=== PATIENT | female | born 1955 | race Caucasian/White ===

== ENCOUNTER 2016-09-27 01:08 | Inpatient (IN) | payer BC ==
[~2016-09-27] VITALS: Ht 175.3 cm; Wt 112.9 kg
[~2016-09-27 01:08] MED LIST: ESTROVEN 155 M155 MG PO; GLUCOSA-CHOND-1 EACH; MAGNESIUM500 MG; PRILOSEC20 MG PO; VITAMIN C1000 MG PO
--- NOTE | 2016-09-27 04:35 | NUR ---
60YR OLD WOMAN ADMITTED FROM ER VIA STRETCHER TO ROOM 121. PT IS VERY SLEEPY BUT ABLE TO SLIDE SELF WITH MIN ASSIST ONTO BED FROM STRETCHER. FALLS ASLEEP IF NOT PROMPTED TO STAY AWAKE. RESP EVEN AND UNLABORED. O2 2L/NC. DOES NOT APPEAR PAINFUL AT THIS TIME, NO C/O NAUSEA. IS GOING HOME AND WILL RETURN IN COUPLE HOURS. SL TAPED SECURLY IN L FA.CALL LIGHT IN EASY REACH.
--- NOTE | 2016-09-27 05:04 | NUR ---
SPOKE WITH BRYANT IN ER RE: ELEVATED BP. STATED DR SKAGGS AWARE AND HE SPOKE WITH DR ENGLISH. NO ORDER TO TREAT AT THIS TIME. PT HAS BEEN PLACED ON TELE#4 FOR 8 SECS OF VTACH DURING TRANSFER.
--- NOTE | 2016-09-27 05:40 | NUR ---
AMBULATED INTO BATHROOM TO VOID-600ML CLOUDY YELLOW URINE. PT C/O PRESSURE MID CHEST AND SOB. ASSISTED TO BED. O2 2L/NC PLACED, VS BEING TAKEN. WILL CALL DR ENGLISH.
--- NOTE | 2016-09-27 06:07 | NUR ---
SPOKE WITH DR SPRAGUE RE: ELEVATED BP AND PT C/O CHEST PRESSURE AFTER AMBULATING INTO BATHROOM. RECIEVED ORDER FOR EKG, CARDIAC ENZYMES, HYDRALAZINE 10MG IV NOW AND HAVE DR RUTH CONSULT. ORDERS NOTED.
--- NOTE | 2016-09-27 06:34 | NUR ---
SPOKE WITH DR RUTH RE: CONSULT REQUEST FROM DR ENGLISH. STATES HE WILL COME SEE PT NOW.
--- NOTE | 2016-09-27 06:42 | NUR ---
RECIEVED CALL FROM DR RUTH TO GIVE NITRO .4MG SL, MEDICATION WAS GIVEN. PT STATES CHEST PRESSURE IS UNCHANGED.
--- NOTE | 2016-09-27 06:56 | NUR ---
B/P [id number]-[id number], PT CONT. TO HAVE MID STERNAL CHEST PRESSURE.
--- NOTE | 2016-09-27 07:45 | NUR ---
REPORT RECIEVED FROM CYNDIE YAO USING 5 P'S. PT AWAKE IN BED. PALE. RATES PAIN IN CHEST 11/23. DR RUTH AT BEDSIDE. ORDERS FOR FLUID BOLUS AND MORPHINE.
--- NOTE | 2016-09-27 07:58 | NUR ---
FLUID BOLUS STARTED AND 4 MG MS GIVEN WITH 4 MG ZOFRAN FOR C/O NAUSEA. FAMILY AT BEDSIDE. XRAY IN FOR PORTABLE CHEST XRAY. RT IN FOR EKG. PT REPORTS NO IMPROVEMENT IN PAIN AFTER MS SO FAR. FLUID BOLUS INFUSING WITHOUT DIFFICULTY INTO LAC. MD UPDATED.
--- NOTE | 2016-09-27 09:25 | NUR ---
SECOND SALINE LOCK INSERTED IN L WRIST ON FIRST ATTEMPT. PT TOLERTED WELL. POTASSIUM RIDER INITIATED. DR ENGLISH IN TO SEE PT. PT RATES PAIN 5/10. ASSISTED UP TO BSC TO VOID 700ML CLOUDY CONCENTRATED URINE. PAIN INCREASES WITH ACTIVITY. ASSISTED BACK TO BED. PAIN DECREASES TO 5/10. CONT PULSE OX IN PLACE D/T MS AND PHENERGAN. FAMILY AT BEDSIDE. PT DENIES FURTHER NEEDS. SCD'S IN PLACE. IV FLUIDS AND RIDERS INFUSING WITHOUT DIFFICULTY. CALL LIGHT IN REACH.
--- NOTE | 2016-09-27 11:00 | NUR ---
PT SLEEPING. RESP EVEN, UNLABOURED. FAMILY AT BEDSIDE. CONT PULSE OX IN PLACE. SATS 97% ON 2 L 02. HR 84. CALL LIGHT IN REACH.
--- NOTE | 2016-09-27 11:22 | NUR ---
PATIENT RESTING IN BED WITH EYES CLOSED. FAMILY BY HER SIDE. CALL BUTTON IN REACH. HAD ORAL CARE. FAMILY WILL CALL WHEN SHE IS AWAKE IF NEEDED FOR MORE ADLS.
--- NOTE | 2016-09-27 12:00 | NUR ---
NOTIFIED OF INCREASED BP. LABETOLOL SCHEDULE CHANGED. AWAITING PHARMACY VERIFICATION.
--- NOTE | 2016-09-27 12:11 | NUR ---
PT UP TO BSC. COMPLAINS OF PAIN 9/10 AFTER MOVEMENT. GIVEN 6 MG MS. COMPLAINS OF NAUSEA. GIVEN 8 MG ZOFRAN IV. FAMILY REMAINS AT BEDSIDE. CALL LIGHT IN REACH. PT TO CALL FOR ANY NEEDS.
--- NOTE | 2016-09-27 12:30 | NUR ---
TROPONIN LEVEL DRAWN FROM IV SUCCESSFULLY FOR LAB. PT DROWSY. DENIES NEEDS. CALL LIGHT IN REACH. FAMILY IN ROOM.
--- NOTE | 2016-09-27 12:43 | NUR ---
PT IS ASLEEP, AND DAUGHTER IN RM. RAQUEL REMEMBERED ME FROM A PREVIOUS VISIT. DAUGHTER HAS JUST MOVED FROM [place]. PLAN IS TO DO LAP CASPER THIS AFTERNOON. HER HEART IS COMPLICATIING THINGS SOME, SO SURGERY IS PUT ON HOLD. HAD PRAYER WITH AND DAUGHTER, VERY APPRECIATIVE OF CARE THEY HAVE RECEIVED. WILL CONTINUE TO MONITOR
--- NOTE | 2016-09-27 14:03 | NUR ---
PATIENT RESTING IN BED WITH EYES CLOSED. FAMILY IN ROOM. NO OTHER NEEDS AT THIS TIME. CALL BUTTON IN REACH.
--- NOTE | 2016-09-27 14:10 | NUR ---
PT SLEEPING IN BED. RESP EVEN, UNLABOURED. CALL LIGHT IN REACH. IV ABX AND POTASSIUM INFUSING WITHOUT DIFFICULTY. FAMILY REMAINS AT BEDSIDE.
--- NOTE | 2016-09-27 16:46 | NUR ---
Pt up to BSC with nurse, voided 800cc dark yellow urine. Pt stated she was nauseous after returning to bed. Pain 4-5/10 in RUQ. Phenergan 12.[address] Barbosa in to explain plan for surgery tomorrow and she may be advanced to clear liquid diet until midnight. Small cup of water delivered, encouraged pt small sips only while she is feeling nauseous.
--- NOTE | 2016-09-27 17:44 | NUR ---
PATIENT RESTING IN BED WITH EYES CLOSED. PATIENT STATES THAT SHE HAS NO NEEDS AT THIS TIME. SHE SAYS SHE'S SLEEPY AND ASKED IF SHE RECIEVED ANTI NAUSIA MEDS YET. CALL BUTTON IN REACH. FAMILY IN ROOM.
--- NOTE | 2016-09-27 18:09 | NUR ---
PT COMPLAINED OF CHEST PRESSURE AT START OF SHIFT. NITRO INEFFECTIVE. GIVEN MS, ZOFRAN, PHENERGAN THROUGHOUT DAY FOR PAIN/NAUSEA MANAGEMENT. EFFECTIVE. CONT PULSE OX IN PLACE D/T LARGE VOLUME OF SEDATING MEDS. PAIN AND NAUSEA INCREASE WITH MOVEMENT TO BSC. HR INCREASES AT TIMES WITH MOVEMENT. TELE #9. NS RHYTHM THIS SHIFT. RECEIVED 1 L LR BOLUS. VOIDING LARGE AMOUNTS INFREQUENTLY. URINE DARK, CLOUDY. FAMILY AT BEDSIDE. PLAN FOR PT TO GO TO OR TOMORROW AROUND 1100 FOR CASPER. CONSENT SIGNED. PT RECIEVED POTASSIUM AND MAGNESIUM REPLACEMENT. AWARE OF ZOFRAN DOSES CLOSE TOGETHER. PT CALLS APPROPRIATELY.
--- NOTE | 2016-09-27 18:51 | NUR ---
Pt sleeping. Niece in room. Hung new bag of LR. Call storey within reach.
--- NOTE | 2016-09-27 19:05 | NUR ---
RECEIVED REPORT FROM DAY SHIFT RN. PATIENT IS RESTING IN BED. PATIENT DENIES ANY PAIN OR NAUSEA AT THIS TIME. PATIENT DENIES ANY NEEDS. PATIENT IS REQUESTING CHICKEN BROTH. CALL LIGHT IN REACH.
--- NOTE | 2016-09-27 19:21 | EKG ---
[facility] [address] [facility] [address] [place] [address] Signed Normal sinus rhythm Possible Left atrial enlargement Prolonged QT Abnormal ECG No previous ECGs available Confirmed by HERBIE RUTH MD ([id number]) on 09/27/2016 7:21:33 PM Electronically Signed By: HERBIE RUTH MD 09/27/161920 PATIENT NAME: CORTEZ CHINCHILLA Electrocardiogram DATE OF : 59 PHYSICIAN: HERBIE RUTH MD REPORT #: [id number] REPORT IS CONFIDENTIAL AND NOT TO BE RELEASED WITHOUT AUTHORIZATION
--- NOTE | 2016-09-27 19:21 | EKG ---
[facility] [address] [facility] [place] [address] Signed Normal sinus rhythm Possible Left atrial enlargement Prolonged QT Abnormal ECG When compared with ECG of 27-SEP-2016 04:21, (Unconfirmed) No significant change was found Confirmed by HERBIE RUTH MD ([id number]) on 09/27/2016 7:21:45 PM Electronically Signed By: HERBIE RUTH MD 09/27/161920 PATIENT NAME: CORTEZ CHINCHILLA Electrocardiogram DATE OF : 59 PHYSICIAN: HERBIE RUTH MD REPORT #: [id number] REPORT IS CONFIDENTIAL AND NOT TO BE RELEASED WITHOUT AUTHORIZATION
--- NOTE | 2016-09-27 19:26 | EKG ---
[facility] [address] [facility] [place] [address] Signed Normal sinus rhythm Prolonged QT Abnormal ECG When compared with ECG of 27-SEP-2016 05:53, (Unconfirmed) Incomplete left bundle branch block is no longer present Confirmed by HERBIE RUTH MD ([id number]) on 09/27/2016 7:26:36 PM Electronically Signed By: HERBIE RUTH MD 09/27/16 1926 PATIENT NAME: BRENDA CHINCHILLAHAYLEE Electrocardiogram DATE OF : 59 PHYSICIAN: HERBIE RUTH MD REPORT #: [id number] REPORT IS CONFIDENTIAL AND NOT TO BE RELEASED WITHOUT AUTHORIZATION
--- NOTE | 2016-09-27 21:47 | NUR ---
PATIENT ASSESMENT COMPLETED. PATIENTS EVENING MEDICATIONS GIVEN PER ORDER. PATIENT IS DROWSY BUT EASY TO AWAKEN. PATIENT ATE HALF A CUP OF CHICKEN BROTH. PATIENT RATES PAIN AT A 4/10 IN HER RUQ. PATIENT DENIES THE NEED FOR ANY PAIN MEDICATION. PATIENT IS WEARING SCDS. PATIENT IS ON 2L VIA NC. PATIENT IS ON A PULSE OX AND READINGS ARE WNL. PATIENT IS ON TELE #4, NSR, HR 83. PATIENT COMPLAINS OF MILD NAUSEA. PATIENT REQUESTED NAUSEA MEDICATION. PATIENT GIVEN PRN NAUSEA MEDICATION PER ORDER. PATIENT DENIES ANY FURTHER NEEDS AT THIS TIME. CALL LIGHT IN REACH.
--- NOTE | 2016-09-27 23:42 | NUR ---
PATIENT IS RESTING IN BED WITH EYES CLOSED. BREATHING IS EVEN AND UNLABORED. PATIENT IS ON TELE #4, NSR, HR 81. CALL LIGHT IN REACH.
--- NOTE | 2016-09-28 01:06 | NUR ---
PATIENT ASSISTED TO THE BSC. PATIENT TOLERATED ACTIVITY WELL. PATIENT DENIES ANY PAIN OR NAUSEA. PATIENT IS NOW BACK IN BED WEARING SCDS. CALL LIGHT IN REACH.
--- NOTE | 2016-09-28 03:06 | NUR ---
PATIENTS 0200 MEDICATIONS GIVEN PER ORDER. PATIENTS VITALS TAKEN AND RECORDED. PATIENT CONTINUES TO DENY ANY PAIN OR NAUSEA. CALL LIGHT IN REACH. PATIENT REMAINS ON TELE #4, NSR, HR 77. CALL LIGHT IN REACH,.
--- NOTE | 2016-09-28 04:22 | NUR ---
PATIENT ASSISTED TO THE BSC. PATIENT WAS ABLE TO ELIMINATE. PATIENT IS NOW BACK IN BED. PATIENT DOES NOT WISH TO WEAR SCDS AT THIS TIME. PATIENT DENIES ANY PAIN OR NAUSEA AT THIS TIME. CALL LIGHT IN REACH.
--- NOTE | 2016-09-28 05:29 | NUR ---
PATIENT RESTED WELL THROUGHOUT THE SHIFT. PATIENT DENIED ANY PAIN. PATIENT RECEIVED X1 PRN NAUSEA MEDICATION. PATIENT HAS BEEN NPO SINCE MIDNIGHT. PATIENT HAS SCDS ON. PATIENT IS ON 2L VIA NC. PULSE OX IN PLACE. PATIENT IS ON TELE #5, NSR, HR IN THE 80'S. PATIENT USES BSC. PATIENT IS STEADY ON HER FEET. PATIENT IS AAOX3 AND USES CALL LIGHT APPROPRIATELY.
--- NOTE | 2016-09-28 06:34 | NUR ---
PATIENTS MORNING MEDICATIONS GIVEN PER ORDER. PATIENTS VITALS TAKEN AND RECORDED. PATIENT COMPLAINS OF NAUSEA. PATIENT GIVEN PRN NAUSEA MEDICATION PER ORDER. PATIENT DENIES ANY PAIN. PATIENT IS NOW BACK IN BED RESTING. PATIENT CONTINUES TO REFUSE TO WEAR SCDS AT THIS TIME. PATIENT IS AAOX3. CALL LIGHT IS WITHIN REACH.
--- NOTE | 2016-09-28 07:49 | NUR ---
REPORT RECEIVED FROM MAXIMILIAN BOWSER. PT AWAKE AND WATCHING NEWS WITH IN ROOM. PT STATES SHE IS STILL NAUSEOUS AND THE SMALL DOSE ZOFRAN DID NOT WORK THIS TIME. WILL TITRATE UP TO FULL DOSE. PT UP TO RESTROOM WITH STANDBY ASSIST. FOR 500 AND SOME GAS.
--- NOTE | 2016-09-28 09:56 | NUR ---
PATIENT UP TO SHOWER WITH HIBBA CLEANSE. ORAL CARE DONE. LINENS CHANGED.
--- NOTE | 2016-09-28 10:01 | NUR ---
PT SHOWERED WITH HIBICLENS SOLUTION. BACK IN BED WITH KRIDER INFUSING. PT DENIES CONCERNS.
--- NOTE | 2016-09-28 12:00 | NUR ---
PT WAITING FOR SURGERY. LR HANGING. WIPE DOWN COMPLETE. ANESTHESIA REPORT PRINTED.
--- NOTE | 2016-09-28 13:11 | NUR ---
MED REC COMPLETE. PATIENT TAKES NO NORMAL HOME MEDICATIONS.
--- NOTE | 2016-09-28 13:53 | NUR ---
PT WAITING TO GO TO SURGERY. DENIES CONCERNS. IN ROOM.
--- NOTE | 2016-09-28 13:54 | NUR ---
RAQUEL IN WITH PT. HE HAS STAYED BY HER SIDE. WAITING ON CONCRETE TRUCK DRIVER TO COME AND TAKE HER. SHE LOOKS LIKE SHE FEELS BETTER, AND SHE ADMITTED SUCH. PT REQUESTED PRAYER. WILL CONTINUE TO FOLLOW
--- NOTE | 2016-09-28 14:10 | NUR ---
PATIENT RESTING IN BED WITH EYES CLOSED. IN ROOM. FRESH WATER FOR MOUTH SWABS GIVEN. NO OTHER NEEDS AT THIS TIME. CALL BUTTON IN REACH.
--- NOTE | 2016-09-28 14:42 | NUR ---
PT ASKED FOR PAIN AND NAUSEA MEDICATION WHEN GIVING AB. PT STATES SHE IS HAVING PRESSURE IN HER EPIGASTRIC AREA.
--- NOTE | 2016-09-28 15:30 | NUR ---
PT OFF FLOOR WITH SURGERY.
--- NOTE | 2016-09-28 18:28 | NUR ---
PT. OFF FLOOR AT 1515 TO SURGERY FOR GALLBLADDER REMOVAL. PT. HAD ZOFRAN X2, MORPHINE X1 PRIOR TO SURGERY. FAMILY IN ROOM, PROBABLE OVERNIGHT STAY. RIGHT ARM RESTRICTION. ALERT AND ORIENTED, USES CALL LIGHT APPROPRIATELY. STILL IN SURGERY AT THE TIME OF THIS NOTE.
--- NOTE | 2016-09-28 19:34 | NUR ---
RECEIVED REPORT FROM DAY SHIFT RN. PATIENT IS STILL IN DAY SURGERY AT THIS TIME.
--- NOTE | 2016-09-28 20:19 | NUR ---
09/28/162018 Korin Jaquez OXYGEN SATURATION REMAINS 99% ON 10L VIA MASK. OXYGEN REDUCED TO 6L VIA MASK.
--- NOTE | 2016-09-28 21:00 | NUR ---
PATIENT ARRIVED BACK TO THE FLOOR VIA STRECTCHER AROUND 2100. PATIENT TRANSFFERED BY STAFF FROM STRETCHER TO HOSPITAL BED. PATIENT TOLERATED ACTIVITY WELL. RECEIVED REPORT FROM DAY SURGERY RN. PATIENT DENIES ANY PAIN OR NAUSEA AT THIS TIME. VITALS TAKEN AND RECORDED. ORDERS PUT INTO PLACE.
--- NOTE | 2016-09-28 21:32 | NUR ---
PATIENT ASSESMENT COMPLETED. PATIENT HAS ON SCDS. PATIENT EDUCATED ON HER DIET. PATIENT CONTINUEST TO DENY ANY PAIN ORT NAUSEA. PATIENT HAS X2 DRAINS. PATIENT HAS A MIDLINE INCISION THAT IS COVERED BY MEPLX AND AN OPSITE. PATIENT CONTINUES TO DENY ANY PAIN NAUSEA. ALL EVENING MEDICATIONS GIVEN PER ORDER. PATIENT DENIES ANY FRUTHER NEEDS CALL LIGHT IN REACH.
--- NOTE | 2016-09-28 22:00 | NUR ---
PATIENTS VITAL TAKEN AND RECORDED. PATIENTS PITTMAN IS PUTTING OUT BRIGHT YELLOW URINE AND OUTPUT IS QS. PATIENT CONTINUES TO DENY ANY PAIN OR NAUSEA. CALL LIGHT IN REACH. DRAINS CONTINUE TO PUT OUR SEROSANGUINOUS FLUID.
--- NOTE | 2016-09-28 23:34 | NUR ---
PATIENTS VITALS TAKEN AND RECORDED. PATIENT IS RATING PAIN AT A 9/10. PATIENT SET UP ON BUCKLE ATTACHER. PATIENT EDUCATED ON USE OF BUCKLE ATTACHER. PATIENT VERBALIZES UNDERSTANDING ON USE OF BUCKLE ATTACHER TO CONTROL PAIN. PATIENT DENIES ANY NAUSEA AT THIS TIME. PATIENT GIVEN JELLO PER REQUEST. PATIENT CONTINUES TO WEAR SCDS, PULSE OX, AND 2L VIA NC. PATIENT IS ALSO ON TELE# 4, IRRREGULAR RHYTM, HR IN THE 80'S. PATIENT DENIES ANY FUTHER NEEDS. [facility]
--- NOTE | 2016-09-29 00:21 | NUR ---
PATIENTS LAST SET OF POST OP VITALS TAKEN AND RECORDED. PATIENT WAS ABLE TO TOLERATE JELLO WELL, NO NAUSEA NOTED. PATIENT EDUCATED ON USE OF A PILLOW TO SPLINT ABD WHEN COUGHING. PATIENT DEMONSTRATED. PATIENT STATED "I AM STILL PAINFUL" PATIENT HAS ONLY PRESSED PAPER BALING MACHINE OPERATOR BUTTON X3. REEDUCATED PATIENT ON USE OF PAPER BALING MACHINE OPERATOR. PATIENT VERBALIZED UNDESTANDING. WILL CONTINUE TO MONITOR PATIENTS PAIN. CALL LIGHT IN REACH.
--- NOTE | 2016-09-29 02:49 | NUR ---
PATIENTS VITALS TAKEN AND RECORDED. PATIENTS 0200 VITALS TAKEN. PATIENT RATES PAIN AT A 7/10. PATIENT HAS ODD PIECE CHECKER IN PLACE. HAD KASSANDRA RN VERIFY THE ODD PIECE CHECKER WAS PROPERLY FUNCTIONING. PATIENT STATED "I AM CONFORTABLE, THIS MEDICATION JUST ISNT MAKING ME SLEEPY" PATIENT EDUCATED ON PAIN MANAGEMENT, AND PAIN MEDICATION. PATIENT STATED "MY PAIN FEELS LIKE A DULL ACHE" EDUCATED PATIENT ON PAIN AFTER SURGERY. PATIENT VERBALIZED UNDERSTANDING. PATIENT DENIES ANY NAUSEA. PATIENT DENIES ANY NEEDS AT THIS TIME. CALL LIGHT IN REACH. DRAINS X2 EMPTIED AND OUTPUT RECORDED.
--- NOTE | 2016-09-29 04:00 | NUR ---
PATIENT IS AWAKE AND ALERT. REPORTS PAIN AT A 2/10 WHEN SHE IS NOT MOVING. PAIN INCREASES TO A 7/10 WHEN THE PATIENT COUGHS OR MOVES. EDUCATED PATIENT ON IMPORTANCE OF BRACING HER ABDOMEN WITH A PILLOW WHEN SHE COUGHS. ENCOURAGED PATIENT TO COUGH EFFECTIVLY TO CLEAR SECREATIONS. PATIENT IS USING THE CEMENT SPRAYER HELPER AND DEMONSTRATES AN UNDERSTANDING OF THE PROPER USE FOR EFFECTIVE PAIN CONTROL. PATIENT HAS NO FURTHER REQUEST AT THIS TIME. PULSE OX IS IN PLACE. TELE IS IN PLACE. SCD'S ARE IN PLACE. DRAINS X2 ASSESSED AND APPEAR INTACT. DRAINING SEROSANGINOUS FLUID. CALL LIGHT WITHIN REACH.
--- NOTE | 2016-09-29 05:02 | NUR ---
PATIENT ARRIVED BACK FROM SURGERY AROUND 2100. PATIENT HAS RESTED ON AND OFF SINCE SURGERY. PATIENT HAS A T-TUBE AND ANNETTA ON THE RIGHT SIDE OF HER ABD. BOTH DRAINS HAVE SEROSANGUINOUS FLUID DRAINING IN THEM. PATIENT IS ON CLEARS AND WAS ABLE TO EAT JELLO WITH NO REPORTED NAUSEA. PATIENT IS ON 2L VIA NC AND PULSE OX IN PLACE. PATIENT IS ON TELE #4. PATIENT IS WEARING SCDS. PATIENT HAS A PITTMAN IN PLACE AND URINE OUTPUT IS IN PLACE. PATIENT HAS A PC FOR PAIN CONTROL AND USES IT APPROPRIATELY. PATIENT HAS A MIDLINE INCISION THAT IS COVERED W/MEPLX AND AN OPSITE AND IS C/D/I. PATIENT IS AAOX3 AND USES CALL LIGHT APPROPRIATELY. PATIENT HAS NOT BEEN OUT OF BED SINCE SURGERY.
--- NOTE | 2016-09-29 06:05 | NUR ---
PATIENTS MORNING MEDICATIONS GIVEN PER ORDER. PATIENT RATES PAIN AT A 4/10. PATIENT STATED "I THINK I HAVE THE HANG OF THE SUPPLIER MANAGER DOWN" PATIENT DENIES ANY NAUSEA AT THIS TIME. VITALS TAKEN AND RECORDED. DRAINS CONTINUE TO PUT OUT A SMALL AMOUNT OF SEROSANGUINOUS DARINAGE. PATIENT DENIES ANY NEEDS AT THIS TIME. CALL LIGHT IN REACH.
--- NOTE | 2016-09-29 07:30 | NUR ---
PATIENT SITTING UP IN BED EATING BREAKFAST WITH IN ROOM. GAVE WASH CLOTH FOR HANDS AND FACE. TALKED ABOUT THE PLAN FOR THE DAY. FRESH ICE WATER GIVEN. NO OTHER NEEDS AT THIS TIME CALL BUTTON IN REACH.
--- NOTE | 2016-09-29 07:33 | NUR ---
PT. IS AWAKE IN BED WITH AT BEDSIDE. REPORT RECEIVED FROM MAGUE YAO AND LIZ RN. PT. STATES THAT HER PAIN IS WELL CONTROLLED NOW THAT SHE HAS "FIGURED OUT THE MICRO PHOTOGRAPHER." NO NEEDS AT THIS TIME.
--- NOTE | 2016-09-29 09:24 | NUR ---
MORNING MEDICATIONS GIVEN. PT. RESTING IN BED ON HER COMPUTER. MORNING ASSESSMENT DONE. NO NEEDS AT THIS TIME.
--- NOTE | 2016-09-29 10:54 | NUR ---
ASSISTED HYBRID CORN BREEDER WITH PT BEDBATH AND LINEN CHANGE. PT UP IN CHAIR. DENIES CONCERNS.
--- NOTE | 2016-09-29 10:59 | NUR ---
PATIENT UP TO CHAIR.BED BATH DONE. ORAL CARE DONE. LINENES CHANGED. CALL BUTTON IN REACH IN ROOM. FRESH ICE WATER GIVEN. NO OTHER NEEDS AT THIS TIME.
--- NOTE | 2016-09-29 11:19 | NUR ---
PT. IS SITTING IN CHAIR TALKING WITH . PAIN IS 3/10 AND HAS NO NEEDS AT THIS TIME.
--- NOTE | 2016-09-29 13:37 | NUR ---
PT. IN BED WATCHING TV. MEDICATION GIVEN PER EMAR. NO NEEDS AT THIS TIME.
--- NOTE | 2016-09-29 14:09 | NUR ---
PT HAD OPEN CASPER LATE YESTERDAY AFTERNOON. SHE IS ALERT, ORIENTED AND WORKING ON HER COMPUTER. SHE SAID SHE FEELS WELL, AND IS VERY THANKFUL FOR HAVING SURGERY OVER. I LET STAFF IN TO DO VITALS, WILL CONTINUE TO FOLLOW
--- NOTE | 2016-09-29 14:43 | NUR ---
PT. SITTING IN BED WATCHING TV. PAIN MEDICATION GIVEN. PATIENT HAS NO NEEDS AT THIS TIME.
--- NOTE | 2016-09-29 15:16 | NUR ---
PT. SITTING IN BED TALKING WITH VISITORS. AFTERNOON ASSESSMENT DONE. PT. HAS NO NEEDS AT THIS TIME.
--- NOTE | 2016-09-29 15:31 | NUR ---
ECHO IN PT. ROOM.
--- NOTE | 2016-09-29 16:57 | NUR ---
PT. HAS BEEN RESTING IN BED AND CHAIR THROUGHOUT DAY. VITALS STABLE. UNDER CUTTING MACHINE OPERATOR WAS DC'D TODAY PER PT. REQUEST. SHE STATED THE UNDER CUTTING MACHINE OPERATOR "WAS NOT DOING ANYTHING." MD ORDERED ORAL PERCOCET WHICH WAS ADMINISTERED X2. PT. HAS STATED SHE HAS ADEQUATE PAIN RELIEF WITH THE ORAL PAIN MEDS. NO ACUTE CHANGES FROM BEGINNING OF SHIFT ASSESSMENT. INTENTIONAL ROUNDING DONE WITH ALL PATIENT'S NEEDS MET.
--- NOTE | 2016-09-29 17:25 | NUR ---
PATIENT SITTING UP IN BE EATING DINNER. IN ROOM. FRESH ICE WATER GIVEN. CALL BUTTON IN REACH. NO OTHER NEEDS AT THIS TIME.
--- NOTE | 2016-09-29 18:56 | NUR ---
PT. BACK IN BED AFTER BATHROOM. NEW BAG OF IFV HUNG. PT. STATES SHE IS HAVING DIFFICULTY HAVING A BM AND THAT SHE TAKES MEDICATION AT HOME. NO OTHER NEEDS AT THIS TIME.
--- NOTE | 2016-09-29 19:59 | NUR ---
RECIEVED BEDSIDE REPORT FROM DAYSHIFT RNS. PATIENT IS AWAKE AND ALERT. PATIENT DENIES NAUSEA AT THIS TIME. PATIENT REPORTED 6/10 PAIN AND REQUEST HER PRN PAIN MEDICATION. DRAINS ARE IN PLACE AND HAVE SEROSANINOUS FLUIDS DRAINING. SURGICAL WOUND DRESSING ARE DRY AND INTACT. CALL LIGHT WITHIN REACH.
--- NOTE | 2016-09-29 21:20 | NUR ---
PATIENT REPORTED 6/10 PAIN AND REQUESTED PRN PO PAIN MEDS. PULSE OX DC PER ORDER. PATIENT ON RA, OXYGEN SATURATION WNL. PATIENT STATED "MY THROAT IS A LITTLE MORE SORE THAN YESTERDAY". PATIENT OFFERED WARM TEA AND SHE SAID THAT HELPED SOOTHE HER THROAT. SCD'S ARE IN PLACE. PITTMAN CATH IN PLACE AND DRAINING LIGHT YELLOW URINE. PATIENT ENCOURAGED TO USE THE IS AND SPLINT HER ABDOMEN WHEN COUGHING. DRAINS X2 ARE IN PLACE. PATIENT CONSERNED ABOUT CONSTIPATION DUR TO NOT HAVING A BOWEL MOVEMENT FOR 3 DAYS. PATIENT STATES SHE REGULARLY TAKES "MAG" AT NIGHT FOR BOWEL CARE. CHARGE NURSE DISCUSSED THIS CONCERN WITH . CHARGE NURSE DISCUSSED CONCERNS WITH PATIENT AND ALL QUESTIONS WERE ANSWERED. BOWEL SOUNDS ARE ACTIVE IN ALL FOUR QUADRANTS. ABDOMEN IS SOFT. TENDER NEAR SURGICAL SITES. PATIENT IN BED WITH CALL LIGHT WITHIN REACH. NO FURTHER REQUEST AT THIS TIME.
--- NOTE | 2016-09-29 23:38 | NUR ---
PATIENT STATES THAT SHE IS UNABLE TO SLEEP. PATIENT REQUESTED AN ICE PACK, WHICH WAS RECIEVED BY THIS RN. PATIENT REPOSITIONED IN BED FOR COMFORT. SCD'S IN PLACE. CALL LIGHT WITHIN REACH. PATIENT REPORTED ADEQUATE PAIN MANAGEMENT AT 3/10.
--- NOTE | 2016-09-30 00:53 | NUR ---
PATIENT ALERT AND ORIENTED. SCD'S IN PLACE AND ON. PATIENT ENCOURAGED TO USE IS. PATIENT REMINDED TO SPLINT ABD TO COUGH. PITTMAN IN PLACE AND DRAINING. T-TUBE AND ANNETTA DRAIN IN PLACE. T-TUBE DRAINING TO GRAVITY WITH SMALL AMOUNT OF BEATRIZ/BROWN DRAINAGE. ANNETTA DRAIN ON BED NEXT TO PATIENT AND DRAINING SMALL AMOUNT OF SEROSANGUINOUS FLUID. DRAINAGE TUBE INSERTION SITES ARE OPEN TO AIR AND APPEAR WNL. MEDIAL ABD WOUND COVERED WITH MEPILEX AND OPSIT DRESSING C/D/I. PATIENT DENIES PAIN AT THIS TIME. PATIENT DENIES NAUSEA. PATIENT STATES SHE HAS BEEN HAVING HOT FLASHES AND REGULARLY TAKES ESTROGEN. SHE VERBALIZED AN UNDERSTANDING OF THE REASON HAS NOT ORDERED HER ESTROGEN DURING HER STAY. SHE HAS BEEN USING AN ICE PACK TO REDUCE THE HOT FLASHES AND STATES THAT IS WORKING WELL. PATIENT STATES SHE HAS NOT BEEN ABLE TO SLEEP VERY WELL SINCE SURGERY AND THINKS IT HAS TO DO MORE WITH STRESS FROM BEING AWAY FROM WORK, NOT DISCOMFORT. PATIENTS HOB IS RAISED TO A 45 DEGREE ANGLE AND SHE IS USING HER LAPTOP TO COMPLETE SOME WORK ASSIGNMENTS. PATIENT DOES NOT HAVE ANY FURTHER REQUEST AT THIS TIME. CALL LIGHT WITHIN REACH.
--- NOTE | 2016-09-30 03:43 | NUR ---
PATIENT IS IN BED WITH EYES CLOSED. BREATHING IS DEEP AND NONLABORED. RR 16. CALL LIGHT IS WITHIN REACH. SCD'S ARE IN PLACE.
--- NOTE | 2016-09-30 05:03 | NUR ---
PATIENT WAS AWAKE MOST OF THE NIGHT WORKING ON HER COMPUTER IN THE BED. PATIENT RESTED WELL AFTER 0330. PULSE OX WAS DC'D AT 2100 PER ORDERS. PATIENT ON RA AND O2 SAT HAS BEEN >95% DURING VITAL CHECKS. PATIENT IS ALERT AND ORIENTED X3. SCD'S ARE IN PLACE. IS HAS BEEN ENCOURAGED THROUGHOUT SHIFT. PATIENT IS ON A REGULAR DIET AND TOLERATING IT WELL. PITTMAN IS IN PLACE AND DRAINING LIGHT YELLOW URINE. WILL CONTACT PROVIDER ABOUT DC THE PITTMAN THIS MORNING. PATIENT IS HOPEFUL TO RETURN HOME TODAY. PATIENT'S PAIN HAS BEEN WELL CONTROLLED THROUGHOUT THE NIGHT. 1 PRN PAIN MED WAS GIVEN. PATIENT HAS BEEN USING AN ICE PACK TO SOOTHE HER HOT FLASHES PATIENT HAS BEEN NONFEBRILE AND IS NOT DIAPHORETIC. PATIENT HAS NOT BEEN OUT OF BED DURING SHIFT. PATIENT HAS T-TUBE AND ANNETTA DRAIN IN PLACE. THE T-TUBE IS DRAINING BEATRIZ/BROWN DRAINAGE. ANNETTA IS DRAINING SEROSANGUENOUS. PATIENT HAS IVF INFUSING.
--- NOTE | 2016-09-30 06:30 | NUR ---
PATIENT AWAKE AND ALERT. PATIENT REPORTED PAIN AT 3/10 PAIN RESTING IN BED. PATIENT STATES "I HAVE MORE PAIN WHEN I MOVE, LIKE A 5/10". PATIENT DENIES NEED FOR PRN PAIN MEDS AT THIS TIME. MORNING ASSESSMENT COMPLETED. DRAINS ARE IN IN PLACE WITH SEROSANGINOUS DRAINAGE OUT OF THE ANNETTA AND BROWN/BEATRIZ DRAIANGE OUT OF THE T-TUBE. MIDLINE DRESSING C/D/I. SCD'S IN PLACE. PITTMAN IN PLACE AND DRAINING LIGHT YELLOW URINE, QS OUTPUT. PATIENT IS RESTING COMFORTABLEY IN BED. CALL LIGHT IN REACH. NO FURTHER REQUEST AT THIS TIME.
--- NOTE | 2016-09-30 07:05 | NUR ---
TRISH YAO SPOKE WITH TAMEKA ABOUT REMOVING PITTMAN. VERBAL ORDER RECIEVED TO REMOVE PITTMAN, READ BACK VERIFIED ORDER. TOYA KENT'D AT 0705. PATIENT TOLLERATED WELL.
--- NOTE | 2016-09-30 09:16 | NUR ---
VOIDING YELLOW URINE 600 ML SINCE PITTMAN REMOVED. PAIN WELL CONTROLLED AND TOLERABLE. UP TO BR INDEPENDENTLY. PATIENT SELF EMPTIED DRAINS THIS MORNING, AND APPEARS COMFORTABLE. IV FLUIDS INFUSING. PATIENT STATES " I AM WANTING TO GO HOME TODAY". TOLERATING DIET WELL. VS STABLE. FULL BODY ASSESMENT DONE.
--- NOTE | 2016-09-30 10:00 | NUR ---
PT WAS GIVEN A WARM WASH CLOTH AND WAS FACE AND HANDS BY SELF. PT ALSO DID SELF NATA CARE.
--- NOTE | 2016-09-30 10:21 | NUR ---
PT IS LYING IN BED WATCHING TV. PT WITH VERBAL HELP ONLY WAS ABLE TO EMPTY BOTH DRAINS. PT DID NOT NEED ANYTHING ELSE
[2016-09-30] MEDS ORDERED: FLUTICASONE PRO16 GM NAS (11:18)
[2016-09-30] MEDS ORDERED: ESTROVEN ENERG1 EACH PO (11:18)
[2016-09-30] MEDS ORDERED: ADVIL200 M1 PO (11:19)
[2016-09-30] MEDS ORDERED: GLUCOSAMINE &1 EACH PO (11:19)
[2016-09-30] MEDS ORDERED: METFORMIN HCL750 MG PO (11:20)
[2016-09-30] MEDS ORDERED: MAGNESIUM500 MG PO (11:20)
[2016-09-30] MEDS ORDERED: OMEPRAZOLE20 MG PO (11:21)
[2016-09-30] MEDS ORDERED: ADIPEX-P37.5 MG PO (11:21)
[2016-09-30] MEDS ORDERED: PROAIR HFA8.5 GM INH (11:21)
[2016-09-30] MEDS ORDERED: VITAMIN C500 M2 PO (11:22)
[2016-09-30] MEDS ORDERED: VITAMIN D31000 UNIT PO (11:22)
--- NOTE | 2016-09-30 11:22 | NUR ---
MED REC COMPLETE. PATIENT TAKES HOME MEDICATIONS LISTED ON DR DC LARSEN NOTE.
--- NOTE | 2016-09-30 12:21 | NUR ---
PT SITTING IN CHAIR, WAITING FOR DC ORDERS. PT MENTIONED THAT SHE SLEPT WELL, PAIN WELL CONTROLLED. SHE MENTIONED THAT DRAINS ARE SOMEWHAT CUMBERSOME, BUT MANAGEABLE. EXTENDED A BLESSING, SHE THANKED ME
--- NOTE | 2016-09-30 13:58 | NUR ---
PT OFF FLOOR FOR CHOLANGIOGRAM
--- NOTE | 2016-09-30 14:05 | NUR ---
PT IS AT XRAY, WILL DO VITALS AND EMPTY DRAINS WHEN PT GETS BACK
--- NOTE | 2016-09-30 18:04 | NUR ---
PATIENT UP FREQUENTLY TO BR, SOMETIMES NEEDING BSC SECONDARY TO URGENCY. PATIENT TOLERATING ACTIVITY WELL. EATING WELL. SATURATIONS MAINTAINGIN IN LOW 90 PERCENTILE ON 3L NC. PATIENT WEIGHT TODAY 245.7 REWEIGHED AROUND 1130, COMPLIANT WITH FLUID RESTRICITON HAS 500 ML LEFT FOR PAPER AND PRINTS RESTORER. LUNG SOUNDS COURSE WITH RALES THROUGHOUT, RECIEVING SCHEDULED BREATHING TX. CXR FOR TOMORROW MORNING. VS STABLE.
--- NOTE | 2016-09-30 19:30 | NUR ---
BEDSIDE REPORT RECIEVED FROM DAY RN. PATIENT DENIES PAIN AT THIS TIME. PATIENT IS HOPEFUL TO DISCHARGE TONIGHT. DAY RN LEFT MESSAGE WITH THE PHYSICIAN. THIS RN WILL FOLLOW UP FOR PLAN OF CARE. PATIENT REQUEST TO NOT WEAR SCD'S AT THIS TIME. AGREES TO PUT THEM BACK ON WITHIN THE HOUR. PATIENT HAS IVF RUNNING. CALL LIGHT WITHIN REACH. IN ROOM. NO FURTHER REQUEST AT THIS TIME.
--- NOTE | 2016-09-30 19:43 | NUR ---
DRESSING C/D/I, ACTIVE BOWEL TONES. ANNETTA AND T-DRAIN INTACT AND DRAINING WELL. PASSING FLATUS, NO BM. TOLERATING DIET WELL. PAIN WELL CONTROLLED, MEDICATED X1 WITH 1 TAB PERCOCET, HAD XRAY OF T-TUBE, RESULTS NEGATIVE. ADMINISTERED 2GM ANCEF PRIOR TO XRAY PER DR. ENGLISH ORDERS. PATIENT WAITING FOR DR. ENGLISH TO ROUND ON FLOOR, PATIENT REPORTS WANTING TO GO HOME. VS STABLE. UP AMBULATING THROUGHOUT DAY.
--- NOTE | 2016-09-30 19:53 | NUR ---
PATIENT AMBULATING IN HALLWAY WITH . PATIENT IS INDEPENDENT WITH AMBULATION, GAIT STEADY.
--- NOTE | 2016-09-30 20:25 | NUR ---
PATIENT ASSESSMENT COMPLETE. PATIENT REPORTS ADEQUATE PAIN CONTROL AT THIS TIME. PATIENT REPORTS 2/10 PAIN AT REST. REPORTS INCREASED PAIN OF 5/10 WITH MOVEMENT. PATIENT IS INDEPENDENT UP TO THE BATHROOM AND TO WALK THE HALLS. PATIENT HAS REFUSED SCD'S AT THIS TIME. EDUCATION GIVEN AND PATIENT VERBALIZES UNDERSTANDING. PATIENT DENIES ANY FURTHER NEEDS AT THIS TIME. CALL LIGHT WITHIN REACH.
--- NOTE | 2016-09-30 21:30 | NUR ---
DR ENGLISH ON THE FLOOR TO SEE THE PATIENT. T-TUBE DRAINAGE BAG REMOVED AND CLAVE ATTACHED. IV ABX DC'D AND ORDERS FOR ORAL ABX INPUT FOR THE AM BY DR. ENGLISH. 2200 DOSE OF IV ABX WAS ALREADY MIXED FOR PATIENT. VERIFIED PHONE ORDER USING READ BACK METHOD WITH DR. ENGLISH TO GIVE LAST DOSE OF IV ABX.
--- NOTE | 2016-09-30 23:51 | NUR ---
PATIENT RESTING IN BED WITH EYE CLOSED. BRETAHING NONLABORED. RR14. CALL LIGHT WITHIN REACH.
--- NOTE | 2016-10-01 02:28 | NUR ---
PATIENT RESTING IN BED WATCHING TV ON HER LAPTOP. PATIENT DENIES PAIN AND NAUSEA. CALL LIGHT WITHIN REACH. NO FURTHER REQUEST.
--- NOTE | 2016-10-01 04:30 | NUR ---
PATIENT IN BED RESTING. EYES CLOSED. BREATHING EVEN NONLABORED. RR 14.
--- NOTE | 2016-10-01 05:11 | NUR ---
PATIENT RESTED ON AND OFF THROUGHOUT SHIFT. PATIENT DID NOT REQUIRE PRN PAIN MEDS. PATIENT ON RA. INDEPENDENT UP TO BATHROOM AND IN HALLS. PATIENT REFUSED SCD'S. T-TUBE PLUGGED WITH CLAVE. REPORT N/V TO TAMEKA. ANNETTA DRAIN IN PLACE. REGULAR DIET. IV ABX DC'S. ORAL ABX ORDERED. NO COMPLAINTS OF NAUSEA. DRESSING ARE INTACT. NO NEW DRAINAGE.
--- NOTE | 2016-10-01 06:07 | NUR ---
PATIENT RESTING IN BED. RR 14.
--- NOTE | 2016-10-01 08:00 | NUR ---
PATIENT UP IN ROOM AMBULATING, NO COMPLAINTS OF PAIN. VOIDING WELL. FULL BODY ASSESMENT DONE. DRESSING C/D/I. PATIENT STATES " I AM READY TO GO HOME".
[2016-10-01] MEDS ORDERED: FAMOTIDINE20 MG PO (09:22)
[2016-10-01] MEDS ORDERED: METOPROLOL TART50 MG PO (09:22)
[2016-10-01] MEDS ORDERED: AMOXICILLIN500 MG PO (09:22)
[2016-10-01] MEDS ORDERED: OXYCODON-ACETA1 EAC2 PO (09:22)
--- NOTE | 2016-10-24 12:15 | HP ---
[facility] [address], [place] [address] Signed DATE OF ADMISSION: 09/27/16 REASON FOR ADMISSION This 60-year-old white woman presented to the emergency room and was seen approximately at 0100 in the morning by Dr. Denton. She had complaints of upper abdominal and right subcostal pain. She had recently returned from a trip to [place] where she had similar symptoms and presented to an emergency room there and was considered to have possible gastritis. An ultrasound had not been performed there apparently. Her pain has been going on since (today is Tuesday morning) and she was able to eat through all of this. She underwent an evaluation, which included a gallbladder ultrasound showing gallstones and a thickened gallbladder wall and probable acute cholecystitis. On that basis, I agreed that she be admitted to my service for further evaluation and care for probable acute cholecystitis. I was called after this was put into play for admission that she had a run of ventricular tachycardia for a few beats, not associated with symptoms particularly. Her potassium was found to be slightly low at 3.4, and on that basis potassium is recommended at approximately 4:25 a.m. Magnesium level was to be obtained as well. The patient was taken to the regular nursing floor with telemetry and was found, by the nurse, to have episodes of atrial fibrillation. No further episodes of ventricular tachycardia and medicine consultation was requested and is pending. Additionally, cardiac enzymes were requested to be obtained and she was a bit hypertensive to systolic blood pressure 191 and diastolic pressure of 101, hydralazine 10 mg intravenously was ordered. At present, the patient is in a close observation bed on the puentes and according to the nurses, develop some what she describes as "chest heaviness." The patient has no prior cardiac history and no family history of cardiac problems particularly. She does feel quite thirsty. Her vital signs showed initial pressure at 6:44 of 201/108, now 160/91. Pulse is 87, previously 76. O2 saturations 97% on 2 L nasal cannula. She does have right subcostal pain as well which of course was her dominant complaint at presentation. PAST MEDICAL HISTORY Significant for right mastectomy with reconstruction from 2007. She does not smoke nor has she ever smoked. She does have reflux type symptoms, which she takes Omeprazole. MEDICATIONS Other medications include Glucosamine Chondroitin, Magnesium supplement, Vitamin C supplement, Estroven capsule daily, and Meprazole. Electronically Signed By: RONALD ENGLISH MD 10/24/16 1215 PATIENT NAME: CORTEZ CHINCHILLA HISTORY AND PHYSICAL DATE OF : 59 PHYSICIAN: RONALD ENGLISH MD REPORT #: [id number] REPORT IS CONFIDENTIAL AND NOT TO BE RELEASED WITHOUT AUTHORIZATION [facility] [address] [place] [id number] Signed ALLERGIES: She has no known drug allergies. SOCIAL HISTORY She is . She has sent her home for the time being. PHYSICAL EXAMINATION GENERAL: A woman who is lying sedate and quiet and slightly somnolent. HEENT: Mucous membranes are dry. Trachea is midline. Pulse is generally regular with occasional skipped beat. CHEST: No evidence of tachypnea or respiratory distress. Chest is clear. HEART: Irregularly irregular currently. ABDOMEN: Obese and soft, but there is tenderness in the right subcostal area, I detect no mass. There is no ascites. EXTREMITIES: No clubbing, cyanosis, or edema. LABORATORY DATA Lab studies show white count of 10.7, hematocrit of 44.7, and platelets 310,000. Chem profile shows a potassium of 3.4, creatinine 0.76, glucose 209, AST 12 7, ALT 87, and alkaline phosphatase 117. Cardiac enzymes are pending. Total protein is 7.4, albumin 4.5, and lipase 12. Bladder ultrasound is reviewed showing irregular thickening of the gallbladder wall as well as intracystic abnormalities consistent wit h gallstones. ASSESSMENT The patient is admitted with acute cholecystitis but with concurrent brief arrhythmia including an 8-second run of ventricular tachycardia according to emergency room and more recently, atrial fibrillation with episodes of significant hypertension responsive to Hydralazine. Additional fluids are needed whenever the cardiac causes due to her dehydration. Inflammatory aspect of her acute cholecystitis is notable, but an independent cardiac event cannot be completely excluded or ignored at this time. Consultation will be undertaken with Dr. Bruno, who is now assuming the hospitalist role this morning. She will remain on telemetry for the time being. Antibiotics, parenteral pain medication, O2 supplementation, and cardiac enzyme evaluation, all ongoing. She does not show signs of hypotension or decompensation of her cardiac function particularly. Ronald English MD Electronically Signed By: RONALD ENGLISH MD 10/24/16 1215 PATIENT NAME: CORTEZ CHINCHILLA HISTORY AND PHYSICAL DATE OF : 59 PHYSICIAN: RONALD ENGLISH MD REPORT #: [id number] REPORT IS CONFIDENTIAL AND NOT TO BE RELEASED WITHOUT AUTHORIZATION [address] [address] Signed MAR/Amira /[id number] cc: RILEY Ponce MD Electronically Signed By: RONALD ENGLISH MD 10/24/16 1215 PATIENT NAME: CORTEZ CHINCHILLA HISTORY AND PHYSICAL DATE OF : 59 PHYSICIAN: RONALD ENGLISH MD REPORT #: [id number] REPORT IS CONFIDENTIAL AND NOT TO BE RELEASED WITHOUT AUTHORIZATION
--- NOTE | 2016-10-24 12:15 | DS ---
[facility] [address] [place], [place] [address] Signed DATE OF DISCHARGE: 10/01/16 REASON FOR ADMISSION This is a 60-year-old white woman who presented to the emergency room at approximately [address] Denton with complaints of upper abdominal and right subcostal pain. She had recently returned from a trip from [place] where she had similar symptoms and presented to the emergency room where she was thought to have possible gastritis and rule out for cardiac ischemia was undertaken. There was no ultrasound performed at that time. She presented to [facility] with similar symptoms and her evaluation was highly suggestive of acute cholecystitis. A gallbladder ultrasound was performed showing gallstones and thickened gallbladder wall. She was admitted for further evaluation and care. It is notable that she had some ventricular tachycardia or possibly in retrospect atrial tachycardia, not particularly associated with symptoms. She was placed on telemetry in addition to her regular admission status. PERTINENT PHYSICAL EXAMINATION G ENERAL: Showed a pleasant white woman, who was quiet and sedate and somewhat somnolent. HEENT: Mucous membranes were dry. Trachea midline. CHEST: Clear. HEART: Regular without murmur initially, but episodically irregular later. ABDOMEN: Obese and soft. There is tenderness in right subcostal area, but no palpable masses. No ascites. EXTREMITIES: Show no clubbing, cyanosis, or edema. LABORATORY DATA Initial lab study showed a white count of 10.7, hematocrit 44.7, and platelets 310,000. Potassium is low at 3. 4, creatinine 0.76, glucose 209. Liver enzymes were normal initially. Cardiac enzymes were found to be normal. Gallbladder ultrasound showed irregular thickening of the gallbladder wall as well as intracystic abnormalities consistent with gallstones. HOSPITAL COURSE She was admitted and given antibiotics and intravenous fluids and parenteral pain medication. She was monitored on telemetry where she was found to have some episodes of what appeared to be atrial dysrhythmia and consultation was undertaken with Dr. Bruno. She was ascertained to have no particular sign of cardiac ischemia or malignant dysrhythmia. On 09/28/2016, she underwent operation. This included laparoscopy for a plan of cholecystectomy. Quite notably, her preoperative lab studies had markedly changed with a bilirubin as high as 6.5 and marked elevation of liver enzymes as well, consistent with possible common duct obstruction. No additional images were obtained Electronically Signed By: RONALD ENGLISH MD 10/24/16 1215 PATIENT NAME: CORTEZ CHINCHILLA DISCHARGE SUMMARY DATE OF : 59 PHYSICIAN: RONALD ENGLISH MD REPORT #: [id number] REPORT IS CONFIDENTIAL AND NOT TO BE RELEASED WITHOUT AUTHORIZATION [facility] [address] [place], [place] [address] Signed preoperatively. A plan was made for laparoscopic cholecystectomy with possible common duct exploration that way, however, upon laparoscopy, she was noted to have an impressively thickened rock hard gallbladder, densely adherent to surrounding structures, and therefore, conversion to open operation was required. As she does have distant history of breast cancer with right mastectomy and reconstruction using a rectus abdominis flap, a midline incision was made rather than a subcostal incision, which may have caused problems with the viability of such flaps. Operation showed an impressively inflamed gallbladder, which was excised by open technique. She had multiple stones packed within the gallbladder and white bile consistent with obstructed cystic duct. The anatomy was quite difficult, but common duct exploration was undertaken, which showed 6 gallstones within the bile duct itself. A T-tube was placed and a completion T-tube cholangiogram performed showing clearance of the obstruction. Notably, her bile was markedly abnormal, turbid in appearance and quite likely infected. Ultimately, however, cultures did not grow pathogens. Postoperatively, she was switched to Zosyn antibiotic. Her T-tube was allowed to drain to gravity and an accessory drain placed, which showed no significant bile leakage. The day prior to discharge on 09/30/2016, she underwent T-tube cholangiogram, which showed excellent anatomy, no sign of impediment of flow into the biliary tree and no sign of leakage. By day of discharge on 10/01, the accessory drain was removed as there was no sign of bile in that drain. By time of discharge, she is ambulating well, tolerating a regular diet. She has minimal incisional pain with oral analgesics and a T-tube has been capped for 24 hours with no adverse symptoms. She was discharged home anticipating pulling of the T-tube in about 3 weeks when I see her in the office. It is unlikely she will need another T-tube cholangiogram in this situation. DISCHARGE MEDICATIONS Will include: Amoxicillin 500 mg 1 p.o. t.i.d., #15. Percocet 7.5/325, one to two p.o. q.4 hours p.r.n. pain, #20. Famotidine 20 mg p.o. q.12 hours. Metoprolol 50 mg p.o. b.i.d. She will continue her usual medications including fluticasone spray for allergy symptoms, ibuprofen 200 mg as needed for pain, magn esium 500 mg p.o. daily, metformin 750 mg p.o. daily, phentermine 37.5 mg p.o. daily, albuterol sulfate inhaler as needed, vitamin C and vitamin D3. She was previously taking omeprazole, which she can take in lieu of famotidine if she prefers it. Electronically Signed By: RONALD ENGLISH MD 10/24/16 1215 PATIENT NAME: CORTEZ CHINCHILLA DISCHARGE SUMMARY DATE OF : 59 PHYSICIAN: RONALD ENGLISH MD REPORT #: [id number] REPORT IS CONFIDENTIAL AND NOT TO BE RELEASED WITHOUT AUTHORIZATION [facility] [address] [place], [place] [address] Signed FOLLOWUP PLAN She will return to see me in approximately 3 weeks. DISCHARGE DIAGNOSES Severe acute calculous cholecystitis with choledocholithiasis and obstructive jaundice and cholangitis, status post laparoscopy with conversion to open cholecystectomy and open common duct exploration and placement of T-tube. Underlying atrial dysrhythmia, uncertain etiology. Echocardiogram performed showing mild left ventricular hypertrophy, but without valvular defect, possible episodic atrial dysrhythmia. History of breast cancer, status post mastectomy with reconstruction using the flaps (rectus abdominis). Reactive airways. Dr. Bruno, consulting contract serviceman, advised Jennifer Jackson, her primary provider regarding her cardiac issues and a cardiology appointment will be set up through Jennifer Jackson. MD MAR De Jesus/Modl /[id number] cc: Jennifer Jackson PA-C Electronically Signed By: RONALD ENGLISH MD 10/24/16 1215 PATIENT NAME: CORTEZ CHINCHILLA DISCHARGE SUMMARY DATE OF : 59 PHYSICIAN: RONALD ENGLISH MD REPORT #: [id number] REPORT IS CONFIDENTIAL AND NOT TO BE RELEASED WITHOUT AUTHORIZATION
--- NOTE | 2016-10-24 12:15 | OR ---
[facility] [address], [place] [address] Signed DATE OF PROCEDURE: 09/28/16 PREOPERATIVE DIAGNOSES Acute calculus cholecystitis with obstructive jaundice and cholangitis. History of right rectus abdominis flap right breast reconstruction and probable abdominoplasty. POSTOPERATIVE DIAGNOSES Severe acute calculus cholecystitis with "white bile" and obstructed cystic duct. Obstructing common duct stones x4 with secondary cholangitis and pyogenic bile. PROCEDURE Laparoscopy with attempted cholecystectomy with conversion to open cholecystectomy, prolonged, complicated, difficult. Common bile duct exploration with removal of obstructing common duct stones. Flexible choledochoscopy with basket explantation of distal common duct stone and placement of T-tube. Surgeon directed fluoroscopy with intrao perative cholangiogram (T-tube type), all of this prolonged, complicated, difficult. SURGEON: Ronald English MD. BEAUTICIAN APPRENTICE: (Nurse) Sherrill Espinosa RN. ANESTHESIA: General endotracheal, Ronald Gilliam CRNA. DRAINS A #14 T-tube. A 7 mm flat Shaka drain. INDICATION This 60-year-old white woman presented to the emergency room yesterday with significant abdominal pain and findings on gallbladder ultrasound, including a very thickened gallbladder wall and multiple gallstones. She had been seen only a few days earlier in [place], [place] with diffuse abdominal pain and was ruled out for myocardial ischemia and told to follow up with her primary physician. This was on September 24, 2016. Providing physician there was Jeffrey Velazquez MD. The patient was admitted by me after a presentation to emergency room, given intravenous antibiotics, fluid resuscitation and so forth. She did have some atrial dysrhythmias and at least 1 episode of possible ventricular tachycardia but more likely paroxysmal atrial tachycardia and has been evaluated showing no evidence of cardiac ischemia or Electronically Signed By: RONALD ENGLISH MD 10/24/16 1215 PATIENT NAME: CORTEZ CHINCHILLA OPERATIVE REPORT DATE OF : 59 PHYSICIAN: RONALD ENGLISH MD REPORT #: [id number] REPORT IS CONFIDENTIAL AND NOT TO BE RELEASED WITHOUT AUTHORIZATION [facility] [address], [place] [address] Signed other particular problem. Consulting physician was Dr. Bruno. On her 2nd hospitalization day, today her bilirubin was noted to be 6.5 with marked elevation of liver enzy mes otherwise. She is clinically jaundiced. She is admitted at this time to undergo cholecystectomy, possible laparoscopic common duct exploration and other indicated procedures including possible open cholecystectomy and open common duct exploration. She understands as does her the risks of bleeding, infection, need for open procedure, need for advanced treatment including common duct exploration and placement of drains and other unforeseen complications related to operation and understanding this they wished to proceed. FINDINGS The gallbladder is markedly, acutely and chronically inflamed and very thickened. Nonpigmented bile was noted in the gallbladder. The gallbladder was quite thickened and essentially stuffed with large and small gallstones. The laparoscopic approach was quite impossible given the extent of inflammation and so on. Conversion to open operation was required. Extent of the inflammation was such that a bivalve-type cholecystectomy was accomplished. There was complete occlusion of the cystic duct. It was identified and doubly clipped, however. A butterfly needle cholangiogram was unsuccessful. She did undergo common duct exploration which showed turbid, purulent bile within the common duct. Flexible choledochoscopy as well as irri gation of the duct allowed clearance of the duct of at least 4 stones distally and 3 or 4 more proximally. Completion flexible choledochoscopy allowed for passage of the narrow ureteroscope into the duodenum. There is no evidence of neoplasm of the ampulla or elsewhere. A T-tube completion cholangiogram confirmed flow into the duodenum with no sign of filling defect or other abnormality. The operation was quite prolonged, complicated and difficult lasting 4 times longer than usual, and was accomplished safely. By conclusion, a T-tube was placed in the common duct without periductal leakage and a backup 7 mm flat Shaka drain placed in the subhepatic space. PROCEDURE The patient was brought to the operating room and given a general endotracheal anesthetic. Preoperative antibiotic Ancef was given. Sequential compression device stockings were used. Heparin subcutaneously administered. A Cramer catheter was placed. The abdomen was prepared with a chlorhexidine solution and draped sterilely. Notably, the patient has undergone a right breast reconstruction with a rectus abdominis flap. A well-healed incision was noted in the low midline and transverse configuration. Mindful of the vascular pedicle associated with such flaps special care was taken in placement of trocars and ultimately incision (which was midline). Infraumbilical incision was made Electronically Signed By: RONALD ENGLISH MD 10/24/16 1215 PATIENT NAME: CORTEZ CHINCHILLA OPERATIVE REPORT DATE OF : 59 PHYSICIAN: RONALD ENGLISH MD REPORT #: [id number] REPORT IS CONFIDENTIAL AND NOT TO BE RELEASED WITHOUT AUTHORIZATION [address] [address] Signed and using an open Jose cannula technique, the abdomen was entered. Pneumoperitoneum was achieved at level 14 mmHg of carbon dioxide gas. An epigastric trocar was placed in the midline and two 5 mm trocars in the right side of the abdomen, one at the midclavicular and the other at the right anterior axillary line. The gallbladder was tensed and distended and it could not be grasped initially. A decompressive trocar was placed which only drained a small amount of clear bile implying complete obstruction of the cystic duct in the infundibulum. Nevertheless, the gallbladder was grasped and elevated cephalad using electrocautery. Attempts were made to free dense omental adhesions to its undersurface. These were impressively dense and chronic as well as acute and it was clear that a conversion to open operation would be most feasible particularly given the high probability of need for common duct exploration and the unlikelihood of a laparoscopic approach with this anatomy. On that basis, the trocars were removed and the infraumbilical fascial incision reapproximated with interrupted 0 Vicryl suture. Mindful of her reconstruction flap, a midline incision was deemed most advisable. This extended from the xiphoid to just above the umbilicus but later was taken around the umbilicus for better exposure. The abdomen was entered without problem. The falciform ligament and its fatty attachments were freed anatomically to use as a patch if necessary. A Bookwalter retractor was used to provide exposure. Dense adhesions of omentum, hepatic flexure of colon and duodenum were dissected free from the gallbladder which was markedly thickened and inflamed. The soft tissue was retracted isolating the gallbladder. A pursestring suture with 2-0 Vicryl suture was used to allow for entry into the gallbladder. This was markedly inflamed and thickened. Not much decompression ensued with this approach. The suture was secured and a ring clamp was ap plied to the apex of the gallbladder. Using electrocautery, the peritoneum joining the liver to the gallbladder was incised. A good dissection plane was never really encountered. Dissection was then carried full thickness through the wall which was at least 0.5 cm thick exposing intracystic contents including multiple stones, impacted sludge and other debris, but no evidence of neoplasm. A bivalving of the gallbladder was deemed most appropriate. Extension of the dissection was taken inferiorly to the area of the infundibulum. Stones were removed with stone forceps. Multiple large and small stones were noted. The back wall of the gallbladder was allowed to remain in place. Meticulous dissection was undertaken in the region of the infundibulum and the cystic duct which was not readily identified really. Peritoneum overlying the common bile duct was relatively thickened but its anatomy could be defined. Ultimately, the cystic duct was more fully dissected free, allowing for transection of cystic duct remnants and application of 2 large clips. Still there was no Electronically Signed By: RONALD ENGLISH MD 10/24/16 1215 PATIENT NAME: CORTEZ CHINCHILLA OPERATIVE REPORT DATE OF : 59 PHYSICIAN: RONALD ENGLISH MD REPORT #: [id number] REPORT IS CONFIDENTIAL AND NOT TO BE RELEASED WITHOUT AUTHORIZATION [address] [address] Signed retrograde secretion of bile through the cystic duct prior to clipping. The mucosa of the gallbladder on the liver bed was cauterized and later inspected. Using a butterfly needle, attempts were made to provide cholangiography through the common duct itself. The perineum overlying the common duct was dissected free and although markedly inflamed in the area could be well defined. Aspiration with a TB syringe showed the bile within the bile duct to be turbid and purulent. Some of this was sent for Gram stain and culture. With various maneuvers, a butterfly catheter was used to attempt cholangiography but for whatever reason, very poor images were noted. A common duct exploration was considered essential. Two separate 4-0 PDS sutures were used with stabilizing sutures along the common bile duct after dissecting it out proximally and distally to the curve of the duodenum. The common duct was incised with an 11 blade on its anterior aspect allowing for egress of turbid, grayish appearing biliary fluid. With irrigation a few small stones were taken from the common duct as well. The choledochotomy was extended inferiorly using Jackman scissors. A flexible nephroscope was placed into the common bile duct and with irrigation and so forth inspection undertaken proximally. There is no sign of proximal stone or neoplasm though there was inflammatory change and egress of purulent biliary fluid. Re-orientation of the flexible scope inferiorly showed several stones all of which were milked out initially with irrigation and with a Smith balloon catheter. Reinspection distally showed an impacted common duct stone. With a nephroscope, it could not be fully mobilized and therefore a conventional choledochoscope (also flexible) was placed into the common duct and using a spiral stone basket the obstructing stone grasped and withdrawn in one motion with the scope itself. Reinspection showed clearance of the duct. An irrigation proximally and distally showed general clearance of the purulent material within the biliary tree. A 14 T-tube was cut to the appropriate configuration and placed in the choledochotomy. It was secured with interrupted 4-0 PDS suture and shown to have no leakage. Intraoperative cholangiography was undertaken which did not show passage of contrast into the duodenum. This was somewhat surprising but due to this finding, the choledochotomy was opened again, the T-tube removed and the nephroscope reapplied. Due to the thin nature of the ureteral nephroscope passage distally could be undertaken ultimately into the duodenum itself showing the duodenal mucosa. This of course implied no obstructing neoplasm or stone remained. The scope was removed. A T-tube was once again replaced and secured with 4-0 PDS suture and repeat T-tube cholangiogram undertaken. Free flow of contrast was noted into the biliary tree with a small amount of bile entering into the duodenum. Electronically Signed By: RONALD ENGLISH MD 10/24/16 1215 PATIENT NAME: CORTEZ CHINCHILLA OPERATIVE REPORT DATE OF : 59 PHYSICIAN: RONALD ENGLISH MD REPORT #: [id number] REPORT IS CONFIDENTIAL AND NOT TO BE RELEASED WITHOUT AUTHORIZATION [facility] [address], [place] [address] Signed Through a right-sided stab incision, a 7 mm flat Shaka drain was placed in the subhepatic space. Irrigation was undertaken more fully and hemostasis particularly of the gallbladder wall secured with electrocautery. Plans were made for closure. The midline fascia was reapproximated with running bidirectional #1 PDS suture. The in cision sites were irrigated with saline solution. Skin closed with running subcuticular 3-0 Vicryl. A right-sided lateral trocar site was secured with a Steri-Strip alone. The Mepilex silver sponge dressing was applied to the midline incision after applic ation of Steri-Strips and the T-tube as well as the Shaka drain was secured with an Opsite. The T-tube was attached to a bile bag for dependent drainage, the drain to a bulb suction. The patient tolerated the procedure well. The operation was prolonged, complicated, and difficult lasting 4 times longer than usual. Sponge, needle, and instrument counts were correct x3. MD MAR De Jesus/Modl /[id number] cc: RILEY Ponce Dr. Electronically Signed By: RONALD ENGLISH MD 10/24/16 1215 PATIENT NAME: CORTEZ CHINCHILLA OPERATIVE REPORT DATE OF : 59 PHYSICIAN: RONALD ENGLISH MD REPORT #: [id number] REPORT IS CONFIDENTIAL AND NOT TO BE RELEASED WITHOUT AUTHORIZATION
[2016-10-26] MEDS ORDERED: METOPROLOL SUCC25 MG (10:10)
== END 2016-10-01 09:50 | disposition home or self-care (01) | DRG 412 ==
LOC: ED 01:08 → MS 03:54
PROVIDERS: ADMIT Surgery
PROC: 0FJ44ZZ Inspection of Gallbladder, Percutaneous Endoscopic Approach (ICD-10-PCS; 2016-09-28)
PROC: 0F9900Z Drainage of Common Bile Duct with Drainage Device, Open Approach (ICD-10-PCS; 2016-09-28)
PROC: 0FT40ZZ Resection of Gallbladder, Open Approach (ICD-10-PCS; principal; 2016-09-28 12:45)
DX: K80.01 Calculus of gallbladder with acute cholecystitis with obstruction (principal); I47.1 Supraventricular tachycardia; E87.6 Hypokalemia; K76.0 Fatty (change of) liver, not elsewhere classified; I16.0 Hypertensive urgency; I48.91 Unspecified atrial fibrillation
CPT/HCPCS: 00790; 36415; 47531; 71010; 74300; 76705; 80048; 80053; 81001; 82247; 82465; 82550; 82553; 83036; 83615; 83690; 83735; 83874; 84100; 84478; 84484; 84550; 85025; 87070; 87075; 87205; 93005; 93010; 93306; 94762; 96361; 96374; 96375; 99285; J0330; J0360; J0690; J1100; J1170; J1644; J1885; J2250; J2270; J2405; J2543; J2550; J2704; J2710; J2765; J3010; J3475; J3480; J7030; J7060; J7120; Q9967